=== PATIENT | male | born 1950 | race Caucasian/White ===

== ENCOUNTER → 2024-01-28 08:26 | Outpatient (REF) | payer OTHER, SELFPAY | LOC: RAD 08:26 | PROVIDERS: ATTENDING PHYSICIAN Family Medicine | DX: F10.99 Alcohol use, unspecified with unspecified alcohol-induced disorder (principal); R74.8 Abnormal levels of other serum enzymes; E80.1 Porphyria cutanea tarda; I65.22 Occlusion and stenosis of left carotid artery; I73.9 Peripheral vascular disease, unspecified | CPT/HCPCS: 93880; 93922; 93925 ==

== ENCOUNTER → 2024-02-21 14:17 | Outpatient (REF) | payer OTHER, SELFPAY ==
[2024-02-21 15:57] LABS: Blood Urea Nitrogen 17 mg/dl (9-20); Calcium 9.5 mg/dl (8.4-10.2); Carbon Dioxide 28 mmol/L (22-30); Chloride 94 mmol/L (98-107); Glucose 85 mg/dl (70-99); Potassium 4.8 mmol/L (3.5-5.1); Sodium 132 mmol/L (135-145); eGFR > 60.00
== END ==
LOC: REG 14:17
PROVIDERS: ATTENDING PHYSICIAN Surgery Vascular Surgery; FAMILY PHYSICIAN Family Medicine
DX: I73.9 Peripheral vascular disease, unspecified (principal); I72.4 Aneurysm of artery of lower extremity
CPT/HCPCS: 36415; 80048

== ENCOUNTER → 2024-03-04 13:07 | Outpatient (REF) | payer OTHER, SELFPAY | LOC: RAD 13:07 | PROVIDERS: ATTENDING PHYSICIAN Surgery Vascular Surgery; FAMILY PHYSICIAN Family Medicine | DX: I72.4 Aneurysm of artery of lower extremity (principal); I73.9 Peripheral vascular disease, unspecified | CPT/HCPCS: 75635; Q9967 ==

== ENCOUNTER → 2024-07-21 07:16 | Outpatient (REF) | payer OTHER, SELFPAY | LOC: RCS 07:16 | PROVIDERS: ATTENDING PHYSICIAN Internal Medicine Cardiovascular Disease; FAMILY PHYSICIAN Family Medicine | DX: I35.0 Nonrheumatic aortic (valve) stenosis (principal); I34.2 Nonrheumatic mitral (valve) stenosis | CPT/HCPCS: 93306 ==

== ENCOUNTER → 2024-10-07 12:39 | Outpatient (REF) | payer OTHER, SELFPAY | LOC: RAD 12:39 | PROVIDERS: ATTENDING PHYSICIAN Surgery Vascular Surgery; FAMILY PHYSICIAN Family Medicine | DX: I73.9 Peripheral vascular disease, unspecified (principal) | CPT/HCPCS: 93922; 93925 ==

== ENCOUNTER 2024-11-10 08:54 | Outpatient (RCR) | payer OTHER, SELFPAY ==
[2024-11-03 09:58] LABS: Hematocrit 41.5 % (39.0-52.0); Hemoglobin 15.1 g/dL (13.0-18.0); Mean Corp Hgb Conc. 36.4 g/dL (33.0-37.0); Mean Corpuscular Volume 101.0 fL (80.0-94.0); Platelet Count 184 10^3/uL (130-400); Red Cell Dist. Width 11.1 % (11.5-14.5)
[2024-11-03 10:05] VITALS: BP 166/81
[2024-11-03 10:31] LABS: Iron 215 ug/dl (49-181)
[2024-11-03 10:40] LABS: Total Iron Binding Capacity 258 ug/dl (261-462)
[2024-11-03 10:45] VITALS: BP 152/83
[2024-11-03 10:50] VITALS: BP 148/88
[2024-11-03 11:06] LABS: Ferritin 320.0 ng/ml (17.9-464.0)
[2024-11-10 09:05] LABS: Hematocrit 38.7 % (39.0-52.0); Hemoglobin 13.6 g/dL (13.0-18.0); Mean Corp Hgb Conc. 35.1 g/dL (33.0-37.0); Mean Corpuscular Volume 103.8 fL (80.0-94.0); Platelet Count 197 10^3/uL (130-400); Red Cell Dist. Width 11.5 % (11.5-14.5)
[2024-11-10 09:19] VITALS: BP 153/85
[2024-11-10 09:50] VITALS: BP 133/74
[2024-11-10 09:54] VITALS: BP 146/77
== END 2024-11-17 23:59 | disposition home or self-care (01) ==
LOC: OID 08:54
PROVIDERS: ATTENDING PHYSICIAN Family Medicine
DX: E80.1 Porphyria cutanea tarda (principal); E83.110 Hereditary hemochromatosis; Z72.0 Tobacco use; Z72.9 Problem related to lifestyle, unspecified
CPT/HCPCS: 36415; 82728; 83540; 83550; 85025; 99195